=== PATIENT | male | born 2000 | race Caucasian/White ===

== ENCOUNTER 2020-05-04 14:33 | Emergency (ER) | payer OTHER, SELFPAY ==
[2020-05-04 14:40] VITALS: BP 144/77; PULSE 84; RESP 20; TEMP 37.2; O2SAT 100
--- NOTE | 2020-05-04 14:42 | ED.GENADULT ---
HPI - General Adult General Chief complaint: Skin/Abscess/Foreign Body Stated complaint: rash on arms/hands/stomach Time Seen by Provider: 05/04/20 14:53 Source: patient Mode of arrival: ambulatory Limitations: no limitations History of Present Illness HPI narrative: 19-year-old male patient presents to the [facility] with complaints of a rash to bilateral arms and stomach for the past 4 to 5 days. Patient states he was cutting down trees couple of days ago and thinks he came in contact with some poison paige. Patient states he has been using some calamine lotion to help with the itching. Patient denies any chest pain or shortness of breath. Denies any fevers. Related Data Allergies Allergy/AdvReac Type Severity Reaction Status Date / Time No Known Allergies Allergy Verified 05/04/20 14:45 Review of Systems Review of Systems: Narrative: CONSTITUTIONAL: Denies fever, chills, or sweats. EYES: Denies visual changes, redness, or discharge. ENT: Denies rhinorrhea, congestion, sore throat, or otalgia. CARDIOVASCULAR: Denies chest pain, palpitations, or edema. RESPIRATORY: Denies cough or dyspnea. GASTROINTESTINAL: Denies abdominal pain, nausea, vomiting, or diarrhea. GENITOURINARY: Denies dysuria or hematuria. SKIN: Positive rash with itching to bilateral arms. Complains of itching to the stomach. MUSCULOSKELETAL: Denies back pain, joint pain, or myalgia. NEUROLOGIC: Denies headache, numbness, or weakness. PSYCHIATRIC: Denies anxiety or depression. PMFSH Social History Social History Gender identity (if verbalized by the patient): Male Comments At the time of my signature I agree with nursing past medical history, surgical, social, and family history. There is no relevant family history pertinent to the presenting complaint. Exam Narrative: Exam Narrative: GENERAL: Well-appearing, well-nourished, and in no acute distress. HEAD: Normocephalic, atraumatic. EYES: PERRLA and EOMI. ENT: Nares clear, no rhinorrhea or epistaxis. Mucous membranes moist. NECK: Supple. No lymphadenopathy CHEST: Clear to auscultation. No respiratory distress. HEART: Regular rate and rhythm. No murmur heard. Normal peripheral pulses. ABDOMEN: Soft, nontender, nondistended, normal active bowel sounds. EXTREMITIES: Normal range of motion. No edema. SKIN: Patient has rash noted bilateral arms. Rash is flat, with erythema slightly dry. Hard to specifically see the rash because patient is covered with calamine lotion to bilateral arms. Patient does complain of itching to the belly but there is no obvious rash noted to abdomen at this time. NEURO: No focal deficits. Alert and oriented x3. Course Vital Signs Vital signs: Vital Signs Temperature 37.2 C 05/04/20 14:40 Pulse Rate 84 05/04/20 14:40 Respiratory Rate 20 05/04/20 14:40 Blood Pressure 144/77 H 05/04/20 14:40 Pulse Oximetry 100 05/04/20 14:40 Temperature 37.2 C 05/04/20 14:40 Pulse Rate 84 05/04/20 14:40 Respiratory Rate 05/04/20 14:40 Blood Pressure 144/77 H 05/04/20 14:40 Pulse Oximetry 100 05/04/20 14:40 Vital signs reviewed Vital signs reviewed. The patient has been informed that they may have pre-hypertension or Hypertension based on a BP reading in the department. I recommend that the patient call the primary care provider listed on their discharge instructions or a physician of their choice this week to arrange follow up for further evaluation of possible pre-hypertension or Hypertension Medical Decision Making Differential Diagnosis Differential Diagnosis: Differential diagnosis: Contact dermatitis, poison paige, poison sumac, psoriasis, eczema, allergic reaction, drug reaction, scabies, tinea syphilis, lung disease, viral exanthema, pityriasis, erythema multiforme. Plan of care for patient is discharged home with a taper dose of steroids for the poison paige rash. Discussed patient he can continu
== END 2020-05-04 14:57 | disposition home or self-care (01) ==
PROVIDERS: Emergency Provider Nurse Practitioner Family
DX: L23.7 Allergic contact dermatitis due to plants, except food (principal)
CPT/HCPCS: 99213; G0463

== ENCOUNTER 2022-05-11 16:50 | Emergency (ER) | payer OTHER, SELFPAY ==
[2022-05-11 16:56] VITALS: BP 140/70; PULSE 74; RESP 14; TEMP 37; O2SAT 96
== END 2022-05-11 17:54 | disposition left against medical advice (07) ==
PROVIDERS: Emergency Provider Internal Medicine Hematology & Oncology
DX: Z53.21 Procedure and treatment not carried out due to patient leaving prior to being seen by health care provider (principal)
CPT/HCPCS: 99199

== ENCOUNTER 2022-07-28 08:49 | Emergency (ER) | payer OTHER, SELFPAY ==
[2022-07-28 09:00] VITALS: BP 130/117; PULSE 71; RESP 16; TEMP 36.6; O2SAT 100
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
== END 2022-07-28 09:45 | disposition home or self-care (01) ==
PROVIDERS: Emergency Provider Registered Nurse
DX: J06.9 Acute upper respiratory infection, unspecified (principal); R11.2 Nausea with vomiting, unspecified; Z20.822 Contact with and (suspected) exposure to COVID-19
CPT/HCPCS: 87081; 87426; 87804; 87880; 99213; C9803; G0463

== ENCOUNTER 2023-03-09 16:34 | Emergency (ER) | payer OTHER, SELFPAY ==
[2023-03-09 16:39] VITALS: BP 143/63; PULSE 70; RESP 18; TEMP 36.8; O2SAT 100
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
== END 2023-03-09 17:10 | disposition home or self-care (01) ==
PROVIDERS: Emergency Provider Nurse Practitioner Family
DX: S61.411A Laceration without foreign body of right hand, initial encounter (principal); W45.8XXA Other foreign body or object entering through skin, initial encounter; L25.5 Unspecified contact dermatitis due to plants, except food; F17.290 Nicotine dependence, other tobacco product, uncomplicated; F12.90 Cannabis use, unspecified, uncomplicated
CPT/HCPCS: 99213; G0463